=== PATIENT | female | born 1960 | race Two or more races ===

== ENCOUNTER → 2016-12-15 06:34 | Day surgery (SDC) | payer OTHER ==
[~2016-12-15 06:34] MED LIST: Buffered Lidocaine 1% SYR 3ML* 3 ML/SYR SYRINGE INTRADERM ONE; Dexamethasone IV* 4 MG/ML 1 ML (4 MG) ONE; DiMENhydriNATE IV* 50 MG/ML VIAL IV PUSH PRN; HYDROcodone/ACETAMIN 5-325 MG* 1 TAB PO PRN; HYDROmorphone INJ* 1 MG/ML CARPUJECT SYRINGE IV PRN; Ketorolac INJ* 30 MG/ML 1 ML VIAL ONE; Midazolam* 1 MG/ML 5 ML VIAL (5 MG) ONE; Ondansetron INJ* 2 MG/ML VIAL IV PRN; Ondansetron INJ* 2 MG/ML VIAL ONE; Phenylephrine IV* 40 MCG/ML 10 ML SYRINGE ONE; Propofol* 10 MG/ML 20 ML BTL IV PUSH ONE; VASOPRESSIN 20 UNITS/ML 1 ML VIAL ONE; fentaNYL* 50 MCG/ML 2 ML VIAL (100 MCG VIAL) IV PRN; fentaNYL* 50 MCG/ML 2 ML VIAL (100 MCG VIAL) ONE; oxyCODONE TAB* 5 MG TAB ONE; oxyCODONE TAB* 5 MG TAB PO PRN
[2016-12-15 10:06] VITALS: BP 124/73
--- NOTE | 2016-12-15 12:17 | OP ---
OPERATIVE REPORT: DATE OF OPERATION: 12/15/16 DATE OF : 58 SURGEON: Nayana Hirsch MD ANESTHESIA: General. PRE-OP DIAGNOSES: Postmenopausal bleeding, uterine mass, normal endometrial biopsy showing atrophic endometrium. POST-OP DIAGNOSIS: Postmenopausal bleeding, uterine mass, normal endometrial biopsy showing atrophi c endometrium. OPERATIVE PROCEDURE: D and C hysteroscopy, removal of pelvic mass with MyoSure device. ESTIMATED BLOOD LOSS: Minimal. FLUIDS: Crystalloids. FLUID DEFICIT: About 50 mL. DRAINS: 50 cc of urine drained prior to the procedure. COMPLICATIONS: None. FINDINGS: On entrance to the uterine cavity, a large polypoid mass was found attached to the lower anterior uterine wall that had minimal vascularity and was removed easily with the MyoSure. DESCRIPTION OF PROCEDURE: After informed consent was signed and the procedure was reviewed extensiv red, the patient was taken to the operating where she was given general anesthesia that was found to be adequate. She was prepped and draped in the dorsal lithotomy position in the [facility]. T wo speculums were placed into the vagina to expose the cervix. The anterior lip of the cervix was g rasped with a single-tooth tenaculum. The uterus was sounded to 10 cm. The cervix was then dilated until the MyoSure scope could be inserted easily through the cervix. On entrance to the abdominal c avity, the previously mentioned findings were noted. Hysteroscopic needle was then inserted through the camera and 4 cc of vasopressin were injected into the base of the uterine mass. The MyoSure dev ice, the regular size, was then opened and inserted through the scope. This was used to cut away at the uterine mass until it was almost completely flush with the uterine wall. After removal of the mass, the rest of the uterine cavity was inspected once again and did appear to be normal. The hyst eroscope was removed and a sharp curettage was then done. All instruments were then removed from th e patient's vagina. She was awakened from anesthesia and moved to the stretcher and taken to the re covery room in stable condition. [id number]/[facility] #: [id number]
== END | disposition home or self-care (01) ==
LOC: OR 06:34
PROVIDERS: ATTEND Obstetrics & Gynecology
DX: N95.0 Postmenopausal bleeding (principal); D25.0 Submucous leiomyoma of uterus; I10 Essential (primary) hypertension; F17.210 Nicotine dependence, cigarettes, uncomplicated
CPT/HCPCS: 88305; A9270-GY; J1100; J1885; J2250; J2405; J2704; J3010

== ENCOUNTER 2017-03-19 13:23 | Observation (INO) | payer OTHER ==
[2017-03-19] MEDS ORDERED: Aspirin Low Dose CHEW TAB* 81 MG PO ONE (14:47)
[2017-03-19 15:01] LABS: Hematocrit 45 % (35-47); Hemoglobin 15.3 g/dl (12.0-16.0); Mean Corpuscular HGB Conc 34 g/dl (31-36); Mean Corpuscular Hemoglobin 30 pg (27-31); Mean Corpuscular Volume 88 fL (80-97); Mean Platelet Volume 8 um3 (7.4-10.4); Red Blood Count 5.17 10^6/ul (4.0-5.4); Red Cell Distribution Width 14 % (10.5-15); White Blood Count 8.6 10^3/ul (3.5-10.8)
[2017-03-19 15:13] LABS: Albumin 4.5 g/dL (3.2-5.2); BUN/Creatinine Ratio 22.8 (8-20); Calcium 10.1 mg/dL (8.6-10.3); EGFR African American 96.5 (>60); Globulin 2.7 g/dL (2-4); Potassium 3.4 mmol/L (3.5-5.0); Total Bilirubin 0.3 mg/dL (0.2-1.0); Total Protein 7.2 g/dL (6.4-8.9)
--- NOTE | 2017-03-19 15:37 | RAD ---
INDICATION: Chest pain COMPARISON: None TECHNIQUE: PA and lateral dual-energy views were obtained. FINDINGS: Bones/Soft Tissues: There are no acute bony findings. Cardiomediastinal: The cardiomediastinal silhouette is normal. Lungs: There are no infiltrates. Pleura: There are no pleural effusions. Other: None IMPRESSION: NO ACTIVE DISEASE.
[2017-03-19] MEDS ORDERED: Acetaminophen TAB* 325 MG PO PRN (17:07)
[2017-03-19] MEDS ORDERED: Ondansetron INJ* 2 MG/ML VIAL IV PRN (17:07)
[2017-03-19] MEDS ORDERED: Potassium Chlor TAB* 20 MEQ TAB.ER PO ONE (17:09)
[2017-03-19 17:35] LABS: C Reactive Protein 29.07 mg/L (< 5.00)
--- NOTE | 2017-03-19 17:37 | ED ---
Axel Kessler Benjamin, scribed for Igor Feldman MD on 03/19/17 at 1449 . HPI Chest Pain - HPI Summary HPI Summary: 56yo female c/o CP since this morning. Pt describes her pain as pressure in chest that started in mid sternal chest that also radiates to right shoulder blade. Her CP makes it difficult to take deep breaths and discomfort gets better when lying down. also reports chills and cough. Pt states having CP before. Hx includes HTN, varicose veins. No recent travel, but pt had her thyroid removed couple of months ago. No hx or Fhx of blood clots. - History of Current Complaint Chief Complaint: EDChestPainROMI Time Seen by Provider: 03/19/17 14:28 Hx Obtained From: Patient Onset/Duration: Started Hours Ago - this morning, Still Present Timing: Constant Initial Severity: Mild Current Severity: Mild Pain Intensity: 4 Pain Scale Used: 0-10 Numeric Chest Pain Location: Mid Sternal Chest Pain Radiates: Yes Chest Pain Radiates To:: Shoulder - right shoulder blade Character: Pressure/Squeezing Aggravating Factor(s): Nothing Alleviating Factor(s): Position - lying down Associated Signs and Symptoms: Positive: Chest Pain, Shortness of Breath, Cough. Negative: Numbness - Allergy/Home Medications Allergies/Adverse Reactions: Allergies Allergy/AdvReac Type Severity Reaction Status Date / Time No Known Allergies Allergy Verified 12/15/16 07:01 PMH/Surg Hx/FS Hx/Imm Hx Endocrine/Hematology History: Denies: Hx Diabetes Cardiovascular History: Reports: Hx Hypertension Denies: Hx Pacemaker/ICD Respiratory History: Denies: Hx Asthma Musculoskeletal History: Reports: Hx Arthritis Sensory History: Reports: Hx Contacts or Glasses - readers Denies: Hx Hearing Aid Opthamlomology History: Reports: Hx Contacts or Glasses - readers Psychiatric History: Reports: Hx Anxiety Denies: Hx Panic Disorder - Surgical History Surgery Procedure, Year, and Place: C SECTION had an epidural Hx Anesthesia Reactions: No Infectious Disease History: No Infectious Disease History: Denies: Traveled Outside the [place] in Last 30 Days - Family History Known Family History: Positive: Hypertension Negative: Cardiac Disease, Diabetes, Renal Disease - Social History Occupation: Employed Part-time Lives: With Family Alcohol Use: Occasionally Substance Use Type: Reports: None Smoking Status (MU): Heavy Every Day Tobacco Smoker Review of Systems Positive: Chills. Negative: Fever Eyes: Negative ENT: Negative Positive: Chest Pain Positive: Shortness Of Breath, Cough Gastrointestinal: Negative Genitourinary: Negative Musculoskeletal: Negative Skin: Negative Neurological: Negative Psychological: Normal All Other Systems Reviewed And Are Negative: Yes Physical Exam - Summary Physical Exam Summary: The patient is well-nourished in no acute distress and in no acute pain. The skin is warm and dry and skin color reflects adequate perfusion. HEENT: The head is normocephalic and atraumatic. The pupils are equal and reactive. The conjunctivae are clear and without drainage. Nares are patent and without drainage. Mouth reveals moist mucous membranes and the throat is without erythema and exudate. The external ears are intact. The ear canals are patent and without drainage. The tympanic membranes are intact. Neck is supple with full range of motion and non-tender. There are no carotid bruits. There is no neck vein distension. Respiratory: Chest is non-tender. Lungs are clear to auscultation and breath sounds are symmetrical and equal. Cardiovascular: Hear is regular rate and rhythm. There is no murmur or rub auscultated. There is no peripheral edema and pulses are symmetrical and equal. Abdomen: The abdomen is soft and non-tender. There are normal bowel sounds heard in all four quadrants and there is no organomegaly palpated. Musculoskeletal: There is no back pain noted. Extremities are non-tender with full range of motion. There is good capillary refill. There is no peripheral edema or calf tenderness elicited. Neurological: Patient is alert and oriented to person, place and time. The patient has symmetrical motor strength in all four extremities. Cranial nerves are grossly intact. Deep tendon reflexes are symmetrical and equal in all four extremities. Psychiatric: The patient has an appropriate affect and does not exhibit any depression, but is slightly anxious. Triage Information Reviewed: Yes Vital Signs On Initial Exam: Initial Vitals Temp Pulse Resp BP Pulse Ox 98.2 F 114 20 158/81 100 03/19/17 13:27 03/19/17 13:27 03/19/17 13:27 03/19/17 13:27 03/19/17 13:27 Vital Signs Reviewed: Yes - [place] Coma Scale Coma Scale Total: 15 Diagnostics - Vital Signs Vital Signs Temp Pulse Resp BP Pulse Ox 03/19/17 14:30 86 103/74 91 03/19/17 14:20 95 03/19/17 14:12 19 03/19/17 14:11 135/89 03/19/17 13:29 98.0 F 115 20 158/81 100 03/19/17 13:27 98.2 F 114 20 158/81 100 - Laboratory Lab Results: Lab Results 03/19/17 03/19/17 03/19/17 Range/Units 14:17 14:17 14:17 WBC 8.6 (3.5-10.8) 10^3/ul RBC 5.17 (4.0-5.4) 10^6/ul Hgb 15.3 (12.0-16.0) g/dl Hct 45 (35-47) % MCV 88 (80-97) fL MCH 30 (27-31) pg MCHC 34 (31-36) g/dl RDW 14 (10.5-15) % Plt Count 302 (150-450) 10^3/ul MPV 8 (7.4-10.4) um3 Neut % (Auto) 55.9 (38-83) % Lymph % (Auto) 36.6 (25-47) % Tift % (Auto) 6.0 (1-9) % Eos % (Auto) 1.1 (0-6) % Baso % (Auto) 0.4 (0-2) % Absolute Neuts (auto) 4.8 (1.5-7.7) 10^3/ul Absolute Lymphs (auto) 3.1 (1.0-4.8) 10^3/ul Absolute Monos (auto) 0.5 (0-0.8) 10^3/ul Absolute Eos (auto) 0.1 (0-0.6) 10^3/ul Absolute Basos (auto) 0 (0-0.2) 10^3/ul Absolute Nucleated RBC 0.01 10^3/ul Nucleated RBC % 0.1 ESR Pending D-Dimer, Quantitative (Less Than 230) ng/mL Sodium 139 (133-145) mmol/L Potassium 3.4 L (3.5-5.0) mmol/L Chloride 101 (101-111) mmol/L Carbon Dioxide 31 (22-32) mmol/L Anion Gap 7 (2-11) mmol/L BUN 18 (6-24) mg/dL Creatinine 0.79 (0.51-0.95) mg/dL Est GFR ( Amer) 96.5 (>60) Est GFR (Non-Af Amer) 75.0 (>60) BUN/Creatinine Ratio 22.8 H (8-20) Glucose 118 H (70-100) mg/dL Lactic Acid (0.5-2.0) mmol/L Calcium 10.1 (8.6-10.3) mg/dL Total Bilirubin 0.30 (0.2-1.0) mg/dL AST 15 (13-39) U/L ALT 12 (7-52) U/L Alkaline Phosphatase 76 (34-104) U/L Troponin I 0.00 (<0.04) ng/mL C-Reactive Protein 29.07 H (< 5.00) mg/L B-Natriuretic Peptide 21 ( - 100) pg/mL Total Protein 7.2 (6.4-8.9) g/dL Albumin 4.5 (3.2-5.2) g/dL Globulin 2.7 (2-4) g/dL Albumin/Globulin Ratio 1.7 (1-3) 03/19/17 03/19/17 Range/Units 14:17 14:47 WBC (3.5-10.8) 10^3/ul RBC (4.0-5.4) 10^6/ul Hgb (12.0-16.0) g/dl Hct (35-47) % MCV (80-97) fL MCH (27-31) pg MCHC (31-36) g/dl RDW (10.5-15) % Plt Count (150-450) 10^3/ul MPV (7.4-10.4) um3 Neut % (Auto) (38-83) % Lymph % (Auto) (25-47) % Tift % (Auto) (1-9) % Eos % (Auto) (0-6) % Baso % (Auto) (0-2) % Absolute Neuts (auto) (1.5-7.7) 10^3/ul Absolute Lymphs (auto) (1.0-4.8) 10^3/ul Absolute Monos (auto) (0-0.8) 10^3/ul Absolute Eos (auto) (0-0.6) 10^3/ul Absolute Basos (auto) (0-0.2) 10^3/ul Absolute Nucleated RBC 10^3/ul Nucleated RBC % ESR D-Dimer, Quantitative < 200 (Less Than 230) ng/mL Sodium (133-145) mmol/L Potassium (3.5-5.0) mmol/L Chloride (101-111) mmol/L Carbon Dioxide (22-32) mmol/L Anion Gap (2-11) mmol/L BUN (6-24) mg/dL Creatinine (0.51-0.95) mg/dL Est GFR ( Amer) (>60) Est GFR (Non-Af Amer) (>60) BUN/Creatinine Ratio (8-20) Glucose (70-100) mg/dL Lactic Acid 0.8 (0.5-2.0) mmol/L Calcium (8.6-10.3) mg/dL Total Bilirubin (0.2-1.0) mg/dL AST (13-39) U/L ALT (7-52) U/L Alkaline Phosphatase (34-104) U/L Troponin I (<0.04) ng/mL C-Reactive Protein (< 5.00) mg/L B-Natriuretic Peptide ( - 100) pg/mL Total Protein (6.4-8.9) g/dL Albumin (3.2-5.2) g/dL Globulin (2-4) g/dL Albumin/Globulin Ratio (1-3) Result Diagrams: 03/19/17 14:17 03/19/17 14:17 Lab Statement: Any lab studies that have been ordered have been reviewed, and results considered in the medical decision making process. - Radiology CXR Xray Interpretation: No Acute Changes Radiology Interpretation Completed By: Radiologist - EKG 1333. Cardiac Rate: Tachycardia - 111bpm EKG Rhythm: Sinus Tachycardia EKG Interpretation: normal axis, poor R wave progression, no STEMI Re-Evaluation - Re-Evaluation First Eval Re-Evaluation Time: 16:20 Comment: reviewed lab and imaging results with the pt, discussed follow up plan. Pt wants to stay. Chest Pain Course/Dx - Chest Pain Differential Diagnosis/HQI/PQRI: Acute SD, ACS, Lower Respiratory Infection, Pulmonary Embolism - Diagnoses Provider Diagnoses: Chest pain - Provider Notifications Discussed Care Of Patient With: Dr. Page (hospitalist) @[id number]. Discharge - Discharge Plan Condition: Stable Disposition: ADMITTED TO [facility] documentation as recorded by the Axel mclain Benjamin accurately reflects the service I personally performed and the decisions made by me, Igor Feldman MD.
[2017-03-19 18:17] LABS: Erythrocyte Sed Rate 16 mm/Hr (0-30)
[2017-03-19] MEDS: Heparin VIAL(*) 5000 UNITS/ML VIAL (FIVE THOUSAND) SUBCUT SCH (21:32)
--- NOTE | 2017-03-19 21:59 | HP ---
HISTORY AND PHYSICAL:* DATE OF ADMISSION: 03/19/17 ADDENDUM: Mrs. Aguirre is a 56-year-old female with history of recent upper respiratory infection, who presents with chest pain. It maybe due to costochondritis. The patient is going to be observed in the telemetry monitored bed. For further details of the patient's presentation and plan, please see history and physical dictated by Segundo Ramos NP, on 03/19/17 with which I agree. [id number]/[facility] #: [id number] MTDD
--- NOTE | 2017-03-19 22:07 | HP ---
ATTENDING PROVIDER ADDENDUM NOW INCLUDED ON THIS REPORT HISTORY AND PHYSICAL: DATE OF ADMISSION: 03/19/17 PRIMARY CARE PROVIDER: Michael Prieto NP ATTENDING PHYSICIAN WHILE IN THE HOSPITAL: Dr. [place] Page *(report dictated by Segundo Ramos NP). CHIEF COMPLAINT: Chest pain. HISTORY OF PRESENT ILLNESS: Ms. Aguirre is a 56-year-old female patient. She has a history of smoking, history of hypertension, Raynaud's, depression, anxiety, history of diverticulitis. She comes in to the ER today, says that around 4 o'clock in the morning, she woke up from sleep. She started having a chest pain. She says recently, she was sick. She kind of was aching all over, not feeling very well. She had a sore throat. She said that she noted this morning though she had some chest discomfort. She described it as a dull ache, constant, since 4 in the morning, no worse with exertion, but she said it hurts to take a deep breath. The discomfort got worse. She says that she has not been having any fever that she knows of, but she did admit to having some chills. She said that she can walk up a flight of stairs and does not get chest pain typically, but she does get short of breath. She says she does continue to smoke. She denies any recent changes in medications. She says that she has not had any fever. She says the pain did radiate up into her shoulders, but not into her jaw or down her arm and there was no nausea or sweating with this. She denied any abdominal discomfort. She was concerned, came in to the hospital. There was concern here that this may represent acute coronary syndrome and we were asked to evaluate for admission. PAST MEDICAL HISTORY: Significant for: 1. Hypertension. 2. Raynaud's. 3. Depression. 4. Anxiety. 5. Diverticulitis. PAST SURGICAL HISTORY: 1. She has had tubal ligation. 2. . 3. D and C. 4. She has had a uterine fibroid removed. HOME MEDICATIONS: Include: 1. Ibuprofen 800 mg p.o. b.i.d. as needed. 2. Lisinopril/hydrochlorothiazide 1 tablet p.o. daily. ALLERGIES TO MEDICATIONS: Include no known drug allergies. FAMILY HISTORY: Mother had emphysema. Father had a history of CHF, diabetes, colon cancer. SOCIAL HISTORY: She is a pack-a-day smoker for about 35 years. She rarely drinks alcohol. She has children. Surrogate decision makers are her children. REVIEW OF SYSTEMS: There is no documented fever. She does admit to having chills. There is no double vision. She denies having any ear discharge. There is no rhinorrhea. There is no sore throat. No thyroid enlargement. There was no chest pain now. She does admit to having chest pain from my HPI. There is dyspnea on exertion. There is no orthopnea, no nocturnal dyspnea. Some abdominal pain. No nausea, no vomiting. No dysuria, no frequency. No seizure , no loss of consciousness. No pruritus and no skin ulcerations. Review of 14 systems completed, all others negative. PHYSICAL EXAMINATION GENERAL: At this time, Ms. Aguirre is a 56-year-old female patient. She is sitting in the ER stretcher. She does not appear to be in acute distress. VITAL SIGNS: Reveal blood pressure 120/88, pulse 76, respirations 20, O2 sat 96 %, and temperature of 98.0. HEENT: Head is atraumatic and normocephalic. Eyes: EOMs are intact. Sclerae anicteric and not pale. Throat: Oral mucosa appears to be moist. No oropharyngeal erythema. NECK: Supple. LUNGS: Clear to auscultation bilaterally. No wheezes, rales, or rhonchi. HEART: Sounds S1, S2. Regular rate and rhythm. No murmurs, rubs, or gallops. ABDOMEN: Soft, flat, and nontender. Bowel sounds present. EXTREMITIES: Pulses were 2+ throughout. She is able to move all 4 extremities with 5/5 strength. NEUROLOGIC: The patient is awake, she is alert, she is oriented x3. Tongue midline. Refrigeration System Installer are equal. No gross focal deficits. SKIN: Grossly intact. DIAGNOSTIC STUDIES/LAB DATA: Today revealed WBC of 8.6, RBC of 5.17, hemoglobin 15.3, hematocrit of 45, platelet count of 302. D-dimer less than 200. Sodium 139, potassium 3.4, chloride of 101, bicarb 31, BUN 18, creatinine of 0.79, glucose 118, lactate 0.8, calcium 10.1. Total bili 0.3, AST 15, ALT 12 , alk phos . Troponin 0. BNP 21. Albumin 4.5. She did have a chest x-ray obtained today which revealed no active disease. There was EKG obtained today which showed a sinus tachycardia, rate of 111. No ST elevations or T-wave inversions were noted. No previous for comparison. Old medical records were reviewed. ASSESSMENT AND PLAN: Ms. Aguirre is a 56-year-old female patient coming in to the ER today with complaints of chest discomfort that sounds pleuritic in nature , but there was concern for acute coronary syndrome. She will be admitted under observation status for: 1. Chest pain: Started atypical but she does have risk factors, history of hypertension. She is a smoker. I think it is warranted at this point to cycle her troponins, get an EKG in the morning, check lipid panel, A1c in the morning. In addition to this, order a stress test. I am also going to check her for flu as she did have some sore throat. She said she was aching all over. She had some chills. This could be costochondritis and she takes ibuprofen, that would be appropriate for her to treat this. I will add on a CRP and an ESR as well. I will continue to follow. 2. Hypokalemia: We will go ahead and replace this with p.o. potassium. Repeat in the morning. 3. Hypertension: Continue medications as prescribed. 4. Raynaud's: Again, supportive care. 5. Depression and anxiety: Continue supportive care. 6. Diverticulitis: Not an active issue. 7. DVT prophylaxis: Place her on heparin subcu. 8. Code status: Full code. 9. Fluids, electrolytes, and nutrition: She can have a heart healthy diet and n.p.o. after midnight. TIME SPENT: On the admission was approximately 60 minutes; greater than half the time was spent [id number] with the patient obtaining my history and physical, other half the time spent going over the plan of care with the patient and implementing plan of care. I did discuss the plan of care with my attending, Dr. Page; she is in agreement. SEGUNDO RAMOS NP ADDENDUM: Mrs. Aguirre is a 56-year-old female with history of recent upper respiratory infection, who presents with chest pain. It maybe due to costochondritis. The patient is going to be observed in the telemetry monitored bed. For further details of the patient's presentation and plan, please see history and physical dictated by Segundo Ramos NP, on 03/19/17 with which I agree. JAMAICA PAGE MD CC: Michael Prieto NP* [id number] #: [id number] #: [id number] MTDD
[2017-03-20] MEDS: Heparin VIAL(*) 5000 UNITS/ML VIAL (FIVE THOUSAND) SUBCUT SCH (05:52)
[2017-03-20 06:12] LABS: Hematocrit 43 % (35-47); Hemoglobin 14.4 g/dl (12.0-16.0); Mean Corpuscular HGB Conc 34 g/dl (31-36); Mean Corpuscular Hemoglobin 30 pg (27-31); Mean Corpuscular Volume 90 fL (80-97); Mean Platelet Volume 7 um3 (7.4-10.4); Red Blood Count 4.78 10^6/ul (4.0-5.4); Red Cell Distribution Width 14 % (10.5-15); White Blood Count 6.7 10^3/ul (3.5-10.8)
[2017-03-20 06:27] LABS: BUN/Creatinine Ratio 28.8 (8-20); Calcium 9.1 mg/dL (8.6-10.3); EGFR African American 118.7 (>60); EGFR Non-African American 92.3 (>60); Potassium 4.4 mmol/L (3.5-5.0)
[2017-03-20] MEDS ORDERED: Hydrochlorothiazide TAB* 25 MG PO SCH (09:00)
[2017-03-20] MEDS ORDERED: Lisinopril/HCTZ 20/25(NF) TAB PO SCH (09:00)
[2017-03-20] MEDS ORDERED: Lisinopril TAB* 10 MG PO SCH (09:00)
[2017-03-20] MEDS ORDERED: Aspirin Low Dose CHEW TAB* 81 MG PO SCH (09:00)
--- NOTE | 2017-03-20 11:13 | RAD ---
INDICATION: Chest pain COMPARISON: None TECHNIQUE: A single day SPECT protocol was utilized. Rest images were acquired following the intravenous injection of 10.0 millicuries of technetium 99m tetrofosmin. Exercise stress images were acquired following the intravenous administration of 25.9 millicuries of technetium 99m tetrofosmin. The patient was exercised to a peak heart rate of 150 which is 92 of age predicted maximum. FINDINGS: There are no defects of the stress-induced or fixed nature. The cardiac chamber size is normal. There are no wall motion abnormalities. The ejection fraction is calculated at 76 percent during stress. IMPRESSION: NO DEFECTS OR STRESS-INDUCED OR FIXED NATURE. NORMAL WALL MOTION AND CONTRACTILITY ASSESSMENT: LOW-RISK Based on imaging criteria from ACC/AHA 2002 Guideline Update for the Management of Patients With Chronic Stable Angina Table 23. Noninvasive Risk Stratification.
--- NOTE | 2017-03-20 11:59 | PN ---
Subjective Date of Service: 03/20/17 Interval History: Pt is feeling well. She is ready to go home. She states she still has a heaviness in her chest but has noticed that she has started to cough and bring up some mucous. She has not inspected the color of the sputum however. She denies any fevers or chills. Objective Active Medications: Acetaminophen (Tylenol Tab*) 650 mg PO Q4H PRN PRN Reason: FEVER/PAIN Aspirin (Aspirin Low Dose Tab*) 81 mg PO DAILY [facility] Last Admin: 03/20/17 10:37 Dose: 81 mg Heparin Sodium (Porcine) (Heparin Vial(*)) 5,000 units SUBCUT Q8HR [facility] Last Admin: 03/20/17 05:52 Dose: 5,000 units Hydrochlorothiazide (Hydrodiuril Tab*) 25 mg PO DAILY [facility] Last Admin: 03/20/17 10:37 Dose: 25 mg Lisinopril (Prinivil Tab*) 20 mg PO DAILY [facility] Last Admin: 03/20/17 10:37 Dose: 20 mg Ondansetron HCl (Zofran Inj*) 4 mg IV Q6H PRN PRN Reason: NAUSEA Vital Signs 03/19/17 03/19/17 03/19/17 16:50 17:00 17:09 Temperature Pulse Rate 82 76 65 Respiratory Rate Blood Pressure 120/88 (mmHg) O2 Sat by Pulse 95 96 95 Oximetry 03/19/17 03/19/17 03/19/17 17:30 17:57 19:26 Temperature 98.2 F 97.8 F Pulse Rate 68 88 83 Respiratory 16 16 Rate Blood Pressure 102/57 128/87 113/74 (mmHg) O2 Sat by Pulse 94 97 95 Oximetry 03/19/17 03/19/17 03/20/17 19:51 23:28 00:00 Temperature 97.7 F Pulse Rate 65 Respiratory 16 16 Rate Blood Pressure 102/54 (mmHg) O2 Sat by Pulse 95 95 Oximetry 03/20/17 03/20/17 03/20/17 04:09 07:35 08:00 Temperature 98.6 F 97.8 F Pulse Rate 68 59 Respiratory 16 16 16 Rate Blood Pressure 110/70 131/73 (mmHg) O2 Sat by Pulse 97 97 Oximetry 03/20/17 08:34 Temperature Pulse Rate Respiratory Rate Blood Pressure (mmHg) O2 Sat by Pulse 97 Oximetry Oxygen Devices in Use Now: None Appearance: Middle aged female sitting in a chair, NAD Eyes: No Scleral Icterus Ears/Nose/Mouth/Throat: Mucous Membranes Moist Respiratory: Symmetrical Chest Expansion and Respiratory Effort, Clear to Auscultation Cardiovascular: NL Sounds; No Murmurs; No JVD, RRR, No Edema Abdominal: NL Sounds; No Tenderness; No Distention Extremities: No Clubbing, Cyanosis Skin: No Rash or Ulcers, No Nodules or Sclerosis Neurological: Alert and Oriented x 3 Result Diagrams: 03/20/17 05:24 03/20/17 05:23 Additional Lab and Data: Lab Results 03/19/17 03/19/17 03/19/17 Range/Units 14:17 14:17 14:17 WBC 8.6 (3.5-10.8) 10^3/ul RBC 5.17 (4.0-5.4) 10^6/ul Hgb 15.3 (12.0-16.0) g/dl Hct 45 (35-47) % MCV 88 (80-97) fL MCH 30 (27-31) pg MCHC 34 (31-36) g/dl RDW 14 (10.5-15) % Plt Count 302 (150-450) 10^3/ul MPV 8 (7.4-10.4) um3 Neut % (Auto) 55.9 (38-83) % Lymph % (Auto) 36.6 (25-47) % Clare % (Auto) 6.0 (1-9) % Eos % (Auto) 1.1 (0-6) % Baso % (Auto) 0.4 (0-2) % Absolute Neuts (auto) 4.8 (1.5-7.7) 10^3/ul Absolute Lymphs (auto) 3.1 (1.0-4.8) 10^3/ul Absolute Monos (auto) 0.5 (0-0.8) 10^3/ul Absolute Eos (auto) 0.1 (0-0.6) 10^3/ul Absolute Basos (auto) 0 (0-0.2) 10^3/ul Absolute Nucleated RBC 0.01 10^3/ul Nucleated RBC % 0.1 ESR Pending D-Dimer, Quantitative (Less Than 230) ng/mL Sodium 139 (133-145) mmol/L Potassium 3.4 L (3.5-5.0) mmol/L Chloride 101 (101-111) mmol/L Carbon Dioxide 31 (22-32) mmol/L Anion Gap 7 (2-11) mmol/L BUN 18 (6-24) mg/dL Creatinine 0.79 (0.51-0.95) mg/dL Est GFR ( Amer) 96.5 (>60) Est GFR (Non-Af Amer) 75.0 (>60) BUN/Creatinine Ratio 22.8 H (8-20) Glucose 118 H (70-100) mg/dL Lactic Acid (0.5-2.0) mmol/L Calcium 10.1 (8.6-10.3) mg/dL Total Bilirubin 0.30 (0.2-1.0) mg/dL AST 15 (13-39) U/L ALT 12 (7-52) U/L Alkaline Phosphatase 76 (34-104) U/L Troponin I 0.00 (<0.04) ng/mL C-Reactive Protein 29.07 H (< 5.00) mg/L B-Natriuretic Peptide 21 ( - 100) pg/mL Total Protein 7.2 (6.4-8.9) g/dL Albumin 4.5 (3.2-5.2) g/dL Globulin 2.7 (2-4) g/dL Albumin/Globulin Ratio 1.7 (1-3) 03/19/17 03/19/17 Range/Units 14:17 14:47 WBC (3.5-10.8) 10^3/ul RBC (4.0-5.4) 10^6/ul Hgb (12.0-16.0) g/dl Hct (35-47) % MCV (80-97) fL MCH (27-31) pg MCHC (31-36) g/dl RDW (10.5-15) % Plt Count (150-450) 10^3/ul MPV (7.4-10.4) um3 Neut % (Auto) (38-83) % Lymph % (Auto) (25-47) % Clare % (Auto) (1-9) % Eos % (Auto) (0-6) % Baso % (Auto) (0-2) % Absolute Neuts (auto) (1.5-7.7) 10^3/ul Absolute Lymphs (auto) (1.0-4.8) 10^3/ul Absolute Monos (auto) (0-0.8) 10^3/ul Absolute Eos (auto) (0-0.6) 10^3/ul Absolute Basos (auto) (0-0.2) 10^3/ul Absolute Nucleated RBC 10^3/ul Nucleated RBC % ESR D-Dimer, Quantitative < 200 (Less Than 230) ng/mL Sodium (133-145) mmol/L Potassium (3.5-5.0) mmol/L Chloride (101-111) mmol/L Carbon Dioxide (22-32) mmol/L Anion Gap (2-11) mmol/L BUN (6-24) mg/dL Creatinine (0.51-0.95) mg/dL Est GFR ( Amer) (>60) Est GFR (Non-Af Amer) (>60) BUN/Creatinine Ratio (8-20) Glucose (70-100) mg/dL Lactic Acid 0.8 (0.5-2.0) mmol/L Calcium (8.6-10.3) mg/dL Total Bilirubin (0.2-1.0) mg/dL AST (13-39) U/L ALT (7-52) U/L Alkaline Phosphatase (34-104) U/L Troponin I (<0.04) ng/mL C-Reactive Protein (< 5.00) mg/L B-Natriuretic Peptide ( - 100) pg/mL Total Protein (6.4-8.9) g/dL Albumin (3.2-5.2) g/dL Globulin (2-4) g/dL Albumin/Globulin Ratio (1-3) Microbiology and Other Data: Microbiology 03/19/17 19:40 Influenza Types A,B Antigen (PADDY) - Final Nasal Specimen received for Influenza A/B Molecular testing Assess/Plan/Problems-Billing Ms Aguirre is a 56 yo F who has a h/o HTN and tobacco abuse who presented to the ER with c/o chest pain. - Patient Problems (1) Chest pain Current Visit: Yes Status: Acute Code(s): R07.9 - CHEST PAIN, UNSPECIFIED SNOMED Code(s): 41366017 Comment: The patient ruled out for UT and her stress test was negative. I suspect her chest discomfort is related to a URI. She is now coughing/bringing up sputum. She will continue to monitor her symptoms and if she develops fever, worsened cough or sputum she will check in with her PCP to determine if she would benefit from Abx. (2) HTN (hypertension) Current Visit: Yes Status: Acute Code(s): I10 - ESSENTIAL (PRIMARY) HYPERTENSION SNOMED Code(s): 30233702 Comment: BP is under good control. Continue to monitor. (3) Tobacco abuse Current Visit: Yes Status: Acute Code(s): Z72.0 - TOBACCO USE SNOMED Code( s): 027280751 Comment: Encouraged smoking cessation. We discussed using the [facility] smokers quit line. (4) DVT prophylaxis Current Visit: Yes Status: Acute Code(s): JJP9519 - SNOMED Code(s): 350871229 Comment: SQ heparin (5) Full code status Current Visit: Yes Status: Acute Code(s): Z78.9 - OTHER SPECIFIED HEALTH STATUS SNOMED Code(s): 121916131 Status and Disposition: d/c home
[2017-03-20 12:10] VITALS: BP 132/78
--- NOTE | 2017-03-21 05:10 | DS ---
DISCHARGE SUMMARY: DATE OF ADMISSION: 03/19/17 DATE OF DISCHARGE: 03/20/17 PRIMARY CARE PROVIDER: Michael Prieto NP PRINCIPAL DIAGNOSIS: Noncardiac chest pain. SECONDARY DIAGNOSIS: Hypertension. DISCHARGE MEDICATIONS: 1. Lisinopril/hydrochlorothiazide 25/25 mg 1 tab p.o. daily. 2. Ibuprofen 800 mg p.o. b.i.d. p.r.n. pain. HOSPITAL COURSE: Ms. Aguirre is a 56-year-old female who has a history of hypertension and tobacco abuse who presented to the emergency room on 03/19/17 with complaints of chest pain. The patient in addition to the chest discomfort has been noting an URI type symptoms including chills and sore throat. The patient had awaken from sleep and began having chest pain shortly thereafter. It was noted to be a dull aching constant since 4 a.m. Given the patient's risk factors, she was admitted to rule out acute coronary syndrome. The patient had 3 negative troponins. A lipid profile was also obtained, which did reveal a total cholesterol of 171 and an LDL of 103. She underwent an exercise nuclear stress test that did not reveal any evidence of stress induced or fixed defects. The patient's chest discomfort was felt to be noncardiac in nature. My suspicion is related to URI. The patient does state that she began coughing while in the hospital and is bringing up some sputum. We discussed the fact that without fever and crackles on exam, we will hold off on antibiotics. She has been instructed to continue to follow her symptoms and if she develops fevers, chills, worsened cough, or sputum production; she will contact her primary care provider for possible antibiotic initiation. FOLLOWUP CONCERNS: The patient is being discharged home today, 03/20/17. ACTIVITY LEVEL: As tolerated. DIET: Low fat. CONDITION ON DISCHARGE: Stable. FOLLOWUP: The patient should follow up with her primary care provider, Michael Prieto NP, in the next 4 to 7 days. TIME SEEN: Twenty-five minutes was spent discharging this patient. CC: Michael Prieto NP* [id number]/[facility] #: [id number] MTDD
== END 2017-03-20 12:40 | disposition home or self-care (01) ==
LOC: ED 13:23 → MEDTELE 16:25
PROVIDERS: ADMIT Internal Medicine; ATTEND Hospitalist
DX: R07.89 Other chest pain (principal); E87.6 Hypokalemia; I10 Essential (primary) hypertension; R00.0 Tachycardia, unspecified; R06.02 Shortness of breath; I73.00 Raynaud's syndrome without gangrene; F41.9 Anxiety disorder, unspecified; F17.210 Nicotine dependence, cigarettes, uncomplicated
CPT/HCPCS: 36415; 71020; 78452; 80048; 80053; 80061; 83605; 83880; 84484; 85025; 85379; 85652; 86140; 87502; 93005; 93017; 94760; 96372; 99283; 99406; A9270-GY; A9502; G0378; J1644